=== PATIENT | female | born 1950 | race Caucasian/White ===

== ENCOUNTER 2016-06-28 15:15 | Inpatient (IN) | payer MEDICARE, OTHER ==
[~2016-06-28] VITALS: Ht 175.3 cm; Wt 86.7 kg
[2016-07-02] MEDS ORDERED: OMEP20TA PO (11:06)
[2016-07-02] MEDS ORDERED: HYDR25TA5 PO (11:06)
[2016-07-02] MEDS ORDERED: HYDR-3516 PO (11:06)
[2016-07-12] MEDS ORDERED: CHLORHEXIDINE GLUCONATE 4% SOLN 120 ML BTL TOP SCH (05:45)
[2016-07-12] MEDS: LACTATED RINGER'S 1000 ML IV SCH (05:45)
[2016-07-12] MEDS ORDERED: ceFAZolin 2 GM PREMIX 50 ML IV SCH (05:45)
[2016-07-12] MEDS ORDERED: VANCOMYCIN 1000 MG/NS 250 ML (for <70 kg) IV SCH ×2 (05:45)
[2016-07-12] MEDS ORDERED: INSULIN HUMAN REGULAR 1,000 UNITS/10 ML VIAL SQ PRN (05:45)
[2016-07-12] MEDS ORDERED: POVIDONE IODINE 7.5% SCRUB 118 ML BOTTLE TOP SCH (05:45)
[2016-07-12] MEDS ORDERED: METOPROLOL TARTRATE 25 MG TAB PO PRN (05:45)
[2016-07-12] MEDS ORDERED: SODIUM CHLORID 0.9% 500 ML IV SCH (05:45)
[2016-07-12 05:53] VITALS: BP 142/69; PULSE 58; RESP 16; TEMP 98.1; O2SAT 97
[2016-07-12] MEDS ORDERED: ceFAZolin INJ 1,000 MG VIAL ONE (06:09)
[2016-07-12] MEDS ORDERED: GENTAMICIN SULFATE 80 MG/2 ML VIAL ONE ×2 (06:10)
[2016-07-12 06:20] VITALS: PULSE 57
[2016-07-12] MEDS ORDERED: DEXAMETHASONE SOD PHOS 4 MG/ML VIAL ONE ×2 (06:23→06:45)
[2016-07-12] MEDS ORDERED: MIDAZOLAM HCL 5 MG/5 ML VIAL ONE (06:23)
[2016-07-12] MEDS: LACTATED RINGER'S 1000 ML INJ 1,000 ML IV SCH ×2 (06:38→23:09)
[2016-07-12] MEDS ORDERED: FAMOTIDINE 20 MG/2 ML VIAL ONE (06:44)
[2016-07-12] MEDS ORDERED: ACETAMINOPHEN 1000 MG/100 ML VIAL IV ONE (06:44)
[2016-07-12] MEDS ORDERED: ONDANSETRON HCL 4 MG/2 ML VIAL IVP PRN (06:45)
[2016-07-12] MEDS ORDERED: diphenhydrAMINE HCL 25 MG CAP PO PRN (06:45)
[2016-07-12] MEDS ORDERED: TRANEXAMIC ACID INJ 1,000 MG in SODIUM CHLORIDE 0.9% INJ 100 ML IV SCH (06:45)
[2016-07-12] MEDS ORDERED: diphenhydrAMINE HCL 50 MG/ML VIAL IV PRN (06:45)
[2016-07-12] MEDS ORDERED: SODIUM CHLORIDE 0.9% FLUSH 5 ML FLUSH IVF PRN (06:45)
[2016-07-12] MEDS ORDERED: fentaNYL CITRATE 250 MCG/5 ML AMP ONE (06:45)
[2016-07-12] MEDS ORDERED: NALOXONE HCL 0.4 MG/ML AMP IV PRN (06:45)
[2016-07-12] MEDS ORDERED: BISACODYL 10 MG SUPP PR PRN (06:45)
[2016-07-12] MEDS ORDERED: oxyCODONE/ACETAMINOPHEN 5 MG/325 MG TAB PO PRN (06:45)
[2016-07-12] MEDS ORDERED: MAGNESIUM HYDROXIDE SUSP 30 ML CUP PO PRN (06:45)
[2016-07-12] MEDS ORDERED: Post-op Orders (for Pharmacy) MISC XX ONE (06:45)
[2016-07-12] MEDS ORDERED: OXYC1TAB63 PO (06:49)
[2016-07-12] MEDS ORDERED: XARE10TA PO (06:49)
--- NOTE | 2016-07-12 06:50 | HHI.DCPOC ---
Discharge Care Plan Diagnosis: (1) Osteoarthritis of right knee Your Health Problems Are: Difficulty with ADL Goals to Promote Your Health * To prevent worsening of your condition and complications * To maintain your health at the optimal level Directions to Meet Your Goals Take your medications as prescribed Follow your dietary instruction Follow activity as directed Keep your appointments as scheduled Take your immunizations and boosters as scheduled If your symptoms worsen call your PCP, if no PCP go to Urgent Care Center or Emergency Room Smoking is Dangerous to Your Health. Avoid second hand smoke Call the 24-hour hour crisis hotline for domestic abuse at Nathan Smith MD Jul 12, 2016 06:49
--- NOTE | 2016-07-12 06:51 | HHI.FF ---
Face to Face Verification Diagnosis: (1) Osteoarthritis of right knee Physical Therapy Gait training Knee: Total knee Right LE Weight Bearing: WB as tolerated Right LE Range of Motion: Active ROM Nursing RN: 3 days/week x 2 weeks Dressing Changes: Do not change dressing I have seen patient Yisel Linn on 07/12/16. My clinical findings support the need for the requested home health care services because: Ltd mobility - disease progression Deconditioned w/ increased weakness I certify that my clinical findings support that this patient is homebound because: Post-op weakness Unsteady gait/balance Nathan Smith MD Jul 12, 2016 06:50
--- NOTE | 2016-07-12 06:51 | HHI.DS ---
Discharge Summary Admission Date Jul 12, 2016 at 05:06 Discharge Date: Jul 15, 2016 Admitting Diagnosis r knee oa Diagnosis: (1) Osteoarthritis of right knee Diagnosis: Principal Brief History This is a 66 year old female patient Hospital Course see note Pt Condition on Discharge: Good Discharge Disposition: Disch w/ Home Health Serv Discharge Instructions Diet Instructions: As Tolerated, No Restrictions Activities You Can Perform: Weight Bearing as Russell Activities to Avoid: Strenuous Activity Nathan Smith MD Jul 12, 2016 06:51
[2016-07-12] MEDS ORDERED: CPMMACHINE (06:52)
[2016-07-12] MEDS ORDERED: GETGO ROLLING W1 MI1 (06:54)
[2016-07-12] MEDS ORDERED: TRANEXAMIC ACID 1 GM PRIOR TO PROCEDURE IV SCH ×2 (07:00)
[2016-07-12] MEDS ORDERED: LACTATED RINGER'S 1000 ML INJ 1,000 ML IV ONE (07:59)
[2016-07-12] MEDS ORDERED: ePHEDrine/NS 50 MG/5 ML SYR IV ONE (07:59)
[2016-07-12] MEDS ORDERED: ONDANSETRON HCL 4 MG/2 ML VIAL IV PUSH ONE (07:59)
[2016-07-12] MEDS ORDERED: NEOSTIGMINE 3 MG/3 ML SYR IV ONE (07:59)
[2016-07-12] MEDS ORDERED: PROPOFOL 200 MG/20 ML AMP IV ONE (07:59)
--- NOTE | 2016-07-12 08:35 | HHI.PR ---
Immediate Post Op Note Procedure Date: Jul 12, 2016 Pre Op Diagnosis: (1) Osteoarthritis of right knee Post Op Diagnosis: (1) Osteoarthritis of right knee Surgeon: Nathan Smith Shampooer(s): maren ricardo md Procedure: r tka Complications: none Estimated blood loss: 100 Anesthesia: General Drains: None, Hemovac Tourniquet time (min at mmHg) 60 Patient to: PACU Patient Condition: Good Implant/Devices: Other (depuy sigma 4n/3/10 curved+/35) Nathan Smith MD Jul 12, 2016 08:35
[2016-07-12] MEDS: HYDROCHLOROTHIAZIDE 25 MG TAB PO SCH (09:00)
[2016-07-12] MEDS: PANTOPRAZOLE SOD 20 MG DELAYED RELEASE TAB PO SCH ×2 (09:00→23:04)
[2016-07-12] MEDS: SODIUM CHLORIDE 0.9% FLUSH 5 ML FLUSH IVF SCH ×2 (09:00→21:00)
[2016-07-12] MEDS ORDERED: *morphine SULFATE 8 MG/ML PERIprocedure ONLY ONE (09:24)
[2016-07-12] MEDS ORDERED: DO NOT ADM ANY ANTICOAGULANT DRUGS XX PRN (09:45)
[2016-07-12] MEDS ORDERED: *MEPERIDINE 25 MG INJ VIAL PERIprocedural Use ONLY ONE (09:48)
--- NOTE | 2016-07-12 09:54 | MP ---
cc: AZALEA SMITH DATE OF OPERATION 07/12/2016 PREOPERATIVE DIAGNOSIS Right knee severe tricompartmental osteoarthritis with genu valgum deformity. POSTOPERATIVE DIAGNOSIS Right knee severe tricompartmental osteoarthritis with genu valgum deformity. PROCEDURE Right total knee arthroplasty, posterior cruciate preserving. SURGEON Dr. Smith SENIOR GAME DESIGNER Allen Reese MD ANESTHESIA General endotracheal ESTIMATED BLOOD LOSS 100 cc TOURNIQUET TIME 60 minutes at 250 mmHg COMPLICATIONS None known COMPONENTS USED DePuy sigma four narrow right femoral component, #3 tibial component, 10 mm curved plus insert with a 35-mm patellar component. INDICATIONS Ms. Linn has had over a one year history of worsening pain in her right knee which has been unresponsive to conservative care including anti-inflammatory medication, injection therapy, cane in the right hand and multiple anti-inflammatory medications. The patient has been treated with an exercise program and aggressive range of motion and because of persistent pain and discomfort, she has decided to press on with elective right total knee arthroplasty secondary to bone on bone deformity and inability to do her activities of daily living. OPERATION The patient taken to the operating room on 07/12/2016 and appropriately identified as Mrs. Linn and the right lower extremity was identified as the operative site. The patient was given two grams of IV Ancef, one gram of IV vancomycin, one gram of tranexamic acid. The right lower extremity was then prepped and draped in the usual sterile fashion. The leg was elevated and exsanguinated and the tourniquet was raised to 250 mmHg. A 14 cm midline incision was performed. Sharp dissection was carried through the skin, subcutaneous tissue and a medial parapatellar arthrotomy was performed. The patella was verticalized and it measured 23 mm. It was osteotomized to 15 mm. A 35 mm patellar component had an excellent fit and appropriate drill holes were placed. The patella was subluxed laterally. The knee was flexed to 90 degrees. A 09/19th drill bit was driven through the central aspect of the femur. It was elected to go with a 5 degrees valgus alignment. 9 mm taken off the distal femur and the femur sized out at a 4. Anterior and posterior chamfer cuts were made followed by femoral trialing and it had excellent fit with a 4 narrow. Attention was turned to the proximal tibia where menisci were removed. The remnant of the anterior cruciate ligament was removed and the posterior osteophytes were removed. Using the external tibial alignment guide, 0 mm was taken off the lateral aspect of the tibia, followed by approximately 7 mm off the medial aspect. When this was completed, the tibia sized out at a 3, trialing was then done with a 4 narrow, 3 and a 10 mm insert. The knee came to full extension, gravity flexion to 120 degrees. The patella tracked within the trochlear groove with a no thumbs technique. It was slightly loose in flexion. We decided to use a 10 curve plus insert. The patella tracked within the trochlear groove with a no thumbs technique after a lateral release was performed. The #3 tibia was cemented in appropriate rotation followed by the #4 femur followed by the 10 mm curved plus insert, followed by a 35-mm patellar component. The knee came to full extension, gravity flexion to 120 degrees, patella tracked within the trochlear groove with a no thumbs technique. Two automatic drains were placed in the depths of wound. The medial parapatellar arthrotomy was closed with #1 Vicryl in interrupted fashion, followed by 2-0 Monocryl, followed by 3-0 Monocryl, followed by Steri-Strips. Sponge and needle counts were correct x2. The patient was taken to the recovery room in stable condition. MD MARYLIN Camargo/KELSEY /8:42 AM /9:37 AM
[2016-07-12] MEDS: HYDROmorphone HCL PCA 6 MG/30 ML IV SCH ×2 (09:57→18:02)
[2016-07-12] MEDS ORDERED: TRANEXAMIC ACID 1 GM POST-OP IV SCH ×2 (10:00)
[2016-07-12] MEDS ORDERED: BUPIVACAINE HCL PF 0.5% 30 ML VIAL NB ONE (12:51)
[2016-07-12] MEDS ORDERED: DEXAMETHASONE SOD PHOS PF 10 MG/ML VIAL IV ONE (12:52)
--- NOTE | 2016-07-12 13:03 | RADRPT ---
EXAM DATE/TIME: 07/12/2016 09:29 [facility] COMPARISON: No previous studies available for comparison. INDICATIONS : Post op right knee surgery. MEDICAL HISTORY : None. SURGICAL HISTORY : None. ENCOUNTER: Initial ACUITY: 1 day PAIN SCORE: 0/10 LOCATION: Right Knee. FINDINGS: Two view examination of the right knee demonstrates postoperative right total knee replacement. Drain present in the soft tissues. There is air in the soft tissues as well. CONCLUSION: 1. Postoperative right total knee replacement. Air in soft tissues. Drain also present in soft tissue s. No palpitations identified. Gabino Snow MD on July 12, 2016 at 13:00 Board Certified Radiologist. This report was verified electronically.
[2016-07-12] MEDS: PCA - TOTAL MG DILAUDID DELIVERED PER SHIFT OTHER SCH ×2 (14:00→22:00)
--- NOTE | 2016-07-12 14:25 | EKG ---
Date Performed: 07/12/2016 Time Performed: 06:12:38 PTAGE: 66 years EKG: SINUS BRADYCARDIA BORDERLINE ECG NO PREVIOUS TRACING DOCTOR: Violeta Persaud Interpretating Date/Time 07/12/2016 14:21:42
[2016-07-12 15:03] VITALS: BP 122/68; PULSE 56; RESP 17; TEMP 95.5; O2SAT 98
[2016-07-12 20:00] VITALS: BP 121/68; PULSE 109; RESP 16; TEMP 97.2; O2SAT 99
[2016-07-13] VITALS: BP 117/56; PULSE 73; RESP 16; TEMP 98.2; O2SAT 97
[2016-07-13 04:27] VITALS: BP 118/59; PULSE 90; RESP 18; TEMP 98.3; O2SAT 97
[2016-07-13 05:27] LABS: HEMATOCRIT 34.6 % (35.0-46.0); REVIEW FLAG FINAL
[2016-07-13] MEDS: LACTATED RINGER'S 1000 ML IV SCH (05:45)
[2016-07-13] MEDS: PCA - TOTAL MG DILAUDID DELIVERED PER SHIFT OTHER SCH ×2 (06:00→14:00)
[2016-07-13 08:00] VITALS: BP 125/60; PULSE 71; RESP 16; TEMP 96.7; O2SAT 95
[2016-07-13] MEDS: HYDROCHLOROTHIAZIDE 25 MG TAB PO SCH (08:21)
[2016-07-13] MEDS: PANTOPRAZOLE SOD 20 MG DELAYED RELEASE TAB PO SCH ×2 (08:21→20:29)
[2016-07-13] MEDS: DOCUSATE SODIUM 100 MG CAP PO SCH ×2 (08:22→20:29)
[2016-07-13] MEDS: SODIUM CHLORIDE 0.9% FLUSH 5 ML FLUSH IVF SCH ×2 (08:22→20:29)
[2016-07-13] MEDS: RIVAROXABAN 10 MG TAB PO SCH (08:22)
--- NOTE | 2016-07-13 11:05 | PD.ORT.PN ---
Subjective Post Op Day #: 1 Subjective Remarks pain tolerable Objective Vitals Vital Signs Date Time Temp Pulse Resp B/P Pulse Ox O2 Delivery O2 Flow Rate FiO2 07/13/16 08:00 96.7 71 16 125/60 95 07/13/16 07:25 Room Air 07/13/16 04:27 98.3 90 18 118/59 97 07/13/16 00:00 98.2 73 16 117/56 97 07/12/16 20:00 97.2 109 16 121/68 99 07/12/16 18:02 18 07/12/16 15:03 95.5 56 17 122/68 98 I/O 07/12/16 07/12/16 07/12/16 07/13/16 07/13/16 07/13/16 07:00 15:00 23:00 07:00 15:00 23:00 Intake Total 1750 ml 1702 ml 1184 ml Output Total 1375 ml 720 ml 1620 ml Balance 375 ml 982 ml -436 ml Intake Oral 250 ml 720 ml 720 ml IV Total 300 ml 982 ml 464 ml Other 1200 ml Output Urine Total 700 ml 550 ml 1500 ml Drainage Total 125 ml 170 ml 120 ml Estimated Blood Loss 100 ml Other 450 ml Result Diagram: 07/13/16 0458 Objective Remarks in bed, nad, using cpm drain in place dressing c/d/i huan harris nvi Assessment & Plan Ortho Post Op Day #: 1 Problem List: (1) Osteoarthritis of right knee Assessment and Plan s/p R TKA wbat maintain dressing xarelto d/c drain today d/c planning home with [facility] and pt f/up dr. philip 2 weeks Femi Rojas Jul 13, 2016 11:05
[2016-07-13 12:00] VITALS: BP 151/70; PULSE 81; RESP 17; TEMP 98.5; O2SAT 94
[2016-07-13] MEDS: oxyCODONE/ACETAMINOPHEN 5 MG/325 MG TAB PO PRN ×3 (14:29→23:32)
[2016-07-13 15:55] VITALS: BP 137/65; PULSE 69; RESP 16; TEMP 97.5; O2SAT 91
[2016-07-13 20:00] VITALS: BP 127/66; PULSE 71; RESP 16; TEMP 98.8; O2SAT 94
[2016-07-14] VITALS: BP 128/60; PULSE 71; RESP 16; TEMP 98.6; O2SAT 97
[2016-07-14] MEDS: oxyCODONE/ACETAMINOPHEN 5 MG/325 MG TAB PO PRN ×4 (03:55→21:45)
[2016-07-14] MEDS: LACTATED RINGER'S 1000 ML IV SCH (05:45)
[2016-07-14] MEDS: PCA - TOTAL MG DILAUDID DELIVERED PER SHIFT OTHER SCH ×3 (06:00→22:00)
[2016-07-14] MEDS: LACTATED RINGER'S 1000 ML INJ 1,000 ML IV SCH ×2 (07:30→21:08)
[2016-07-14 08:00] VITALS: BP 126/60; PULSE 74; RESP 16; TEMP 97.1; O2SAT 95
[2016-07-14] MEDS: SODIUM CHLORIDE 0.9% FLUSH 5 ML FLUSH IVF SCH ×2 (09:00→21:46)
[2016-07-14] MEDS: HYDROCHLOROTHIAZIDE 25 MG TAB PO SCH (09:42)
[2016-07-14] MEDS: PANTOPRAZOLE SOD 20 MG DELAYED RELEASE TAB PO SCH ×2 (09:42→21:44)
[2016-07-14] MEDS: RIVAROXABAN 10 MG TAB PO SCH (09:42)
[2016-07-14] MEDS: DOCUSATE SODIUM 100 MG CAP PO SCH ×2 (09:42→21:44)
[2016-07-14 12:00] VITALS: BP 114/55; PULSE 81; RESP 16; TEMP 97.5; O2SAT 92
[2016-07-14 16:00] VITALS: BP 140/66; PULSE 79; RESP 16; TEMP 98.9; O2SAT 95
--- NOTE | 2016-07-14 16:00 | PD.ORT.PN ---
Subjective Post Op Day #: 2 Subjective Remarks pain tolerable. feeling better. Objective Vitals Vital Signs Date Time Temp Pulse Resp B/P Pulse Ox O2 Delivery O2 Flow Rate FiO2 07/14/16 12:00 97.5 81 16 114/55 92 07/14/16 08:00 97.1 74 16 126/60 95 07/14/16 00:00 98.6 71 16 128/60 97 07/13/16 20:00 98.8 71 16 127/66 94 I/O 07/13/16 07/13/16 07/13/16 07/14/16 07/14/16 07/14/16 07:00 15:00 23:00 07:00 15:00 23:00 Intake Total 1184 ml 813 ml 720 ml 720 ml Output Total 1620 ml 110 ml Balance -436 ml 703 ml 720 ml 720 ml Intake Oral 720 ml 600 ml 720 ml 720 ml IV Total 464 ml 213 ml Output Urine Total 1500 ml Drainage Total 120 ml 110 ml # Voids 3 2 3 Result Diagram: 07/13/16 0458 Objective Remarks in bed, nad dressing c/d/i neg homans nvi Assessment & Plan Ortho Post Op Day #: 2 Problem List: (1) Osteoarthritis of right knee Assessment and Plan s/p R TKA wbat maintain dressing xarelto d/c planning home with [facility] and pt - likely Friday f/up dr. philip 2 weeks Femi Rojas Jul 14, 2016 16:00
[2016-07-14 21:00] VITALS: BP 125/60; PULSE 71; RESP 17; TEMP 99.5; O2SAT 96
[2016-07-15 00:06] VITALS: BP 114/58; PULSE 70; RESP 16; TEMP 98.3; O2SAT 96
[2016-07-15] MEDS: LACTATED RINGER'S 1000 ML IV SCH (05:45)
[2016-07-15] MEDS: PCA - TOTAL MG DILAUDID DELIVERED PER SHIFT OTHER SCH ×2 (06:00→13:59)
[2016-07-15] MEDS: oxyCODONE/ACETAMINOPHEN 5 MG/325 MG TAB PO PRN ×2 (06:07→13:59)
[2016-07-15 08:00] VITALS: BP 104/59; PULSE 75; RESP 18; TEMP 98.3; O2SAT 95
[2016-07-15] MEDS: PANTOPRAZOLE SOD 20 MG DELAYED RELEASE TAB PO SCH (08:41)
[2016-07-15] MEDS: DOCUSATE SODIUM 100 MG CAP PO SCH (08:41)
[2016-07-15] MEDS: SODIUM CHLORIDE 0.9% FLUSH 5 ML FLUSH IVF SCH (08:42)
[2016-07-15] MEDS: RIVAROXABAN 10 MG TAB PO SCH (08:42)
[2016-07-15] MEDS: HYDROCHLOROTHIAZIDE 25 MG TAB PO SCH (08:42)
[2016-07-15] MEDS: LACTATED RINGER'S 1000 ML INJ 1,000 ML IV SCH (09:38)
[2016-07-15 12:00] VITALS: BP 127/70; PULSE 72; RESP 18; TEMP 99.1; O2SAT 94
[2016-07-15 16:00] VITALS: BP 108/59; PULSE 76; RESP 18; TEMP 98.6; O2SAT 95
--- NOTE | 2016-07-23 23:43 | MD ---
cc: AZALEA HOPE ADMISSION DATE: 07/12/2016 DISCHARGE DATE: 07/15/2016 ADMISSION DIAGNOSIS Right knee severe tricompartmental osteoarthritis. PROCEDURE July 12, 2016, right total knee arthroplasty. CHIEF COMPLAINT, HISTORY OF PRESENT ILLNESS, PAST MEDICAL HISTORY, PAST SURGICAL HISTORY, MEDICATIONS, ALLERGIES, REVIEW OF SYSTEMS: Please see history and physical dated July 12, 2016. ASSESSMENT: Right knee severe osteoarthritis. HOSPITAL COURSE: The patient underwent the standard preoperative evaluation, was felt to be a suitable candidate for the operating room. On July 12, 2016, she underwent an uncomplicated right total knee arthroplasty. She tolerated the procedure well. Postoperatively she was maintained on 24 hours of IV antibiotics and was started on Xarelto, on postoperative day #1 for DVT prophylaxis. She continued to progress quite nicely, weightbearing as tolerated on the right. She was felt to be a suitable candidate for discharge home on postoperative day #3. She will be maintained on no dressing changes. She will be maintained on CPM machine 0 to 100 degrees, four hours a day, canvas knee splint at night, weightbearing as tolerated, Xarelto 10 milligrams a day for 30 days, Percocet 5/325 one every six hours for pain control. The patient was provided with home health care, home physical therapy, home with CPM machine and a walker. She was felt to be a suitable candidate for discharge on July 15, 2015. I will see her back in the office in two weeks for repeat wound check, suture removal and x-rays. Should any problems arise in the interim, the patient will give me a call. All questions answered to the patient's and family's satisfaction. MD MARYLIN Camargo/DEXTER /5:40 AM /11:36 PM
== END 2016-07-15 19:51 | disposition home health service (06) | DRG 470 ==
LOC: HSDI 07-12 05:06 → N06A 07-12 14:56
PROVIDERS: ADMIT Orthopaedic Surgery; ATTEND Orthopaedic Surgery
PROC: 3E0T3CZ (ICD-10-PCS; 2016-07-12)
PROC: 3E0T3CZ (ICD-10-PCS; 2016-07-12)
PROC: 0SRC0J9 Replacement of Right Knee Joint with Synthetic Substitute, Cemented, Open Approach (ICD-10-PCS; principal; 2016-07-12 06:49)
DX: M17.11 Unilateral primary osteoarthritis, right knee (principal); I10 Essential (primary) hypertension; M21.061 Valgus deformity, not elsewhere classified, right knee
CPT/HCPCS: 73560; 85014; 85018; 86850; 86900; 86901; 93005; 94150; C1776; J0131; J0690; J1100; J1170; J1580; J2175; J2250; J2270; J2405; J2710; J3010; J3370; J7050; J7120; L1830